=== PATIENT | male | born 1935 | race Caucasian/White ===

== ENCOUNTER 2018-05-26 15:26 | Inpatient (IN) | payer OTHER ==
[~2018-05-26] VITALS: Ht 162.6 cm; Wt 68.9 kg
[2018-05-26 15:37] VITALS: Ht 162.6 cm; Wt 68.9 kg
[2018-05-26 16:54] LABS: PLATELET COUNT 182 x10^3mcL (130-400); RED CELL DISTRIBUTION WIDTH 14.4 % (11.5-14.5)
[2018-05-26 17:05] LABS: BASOPHIL % 0 % (0-2)
[2018-05-26 17:10] LABS: ALKALINE PHOSPHATASE 194 U/L (46-116); ALT/SGPT 39 U/L (16-63); AST/SGOT 94 U/L (15-37); BILIRUBIN TOTAL 2.81 mg/dL (0.20-1.00); CARBON DIOXIDE 34.3 mmol/L (21-32); CHLORIDE SERUM 100 mmol/L (98-107); GLUCOSE SERUM 92 mg/dL (74-106); POTASSIUM SERUM 3.2 mmol/L (3.5-5.1); SODIUM SERUM 143 mmol/L (136-145); TOTAL PROTEIN, SERUM 7.6 g/dL (6.4-8.2)
[2018-05-26 17:13] LABS: ALBUMIN 2.6 g/dL (3.4-5.0); CREATININE SERUM 6.4 mg/dL (0.7-1.3)
[2018-05-26] MEDS ORDERED: FUROSEMIDE40 MG PO (19:33)
[2018-05-26] MEDS ORDERED: GOOD SENSE ASPI81 M3 PO (19:35)
[2018-05-26] MEDS ORDERED: CALCITRIOL0.5 MCG PO (19:35)
[2018-05-26 21:37] VITALS: BP 122/74
[2018-05-27 02:55] LABS: microscopic required? YES; urine erythrocyte TRACE (NEGATIVE)
[2018-05-27 06:25] VITALS: BP 121/74
[2018-05-27 07:45] LABS: PLATELET COUNT 143 x10^3mcL (130-400)
[2018-05-27 07:55] LABS: CALCIUM 8.2 mg/dL (8.5-10.1); CARBON DIOXIDE 29.2 mmol/L (21-32); CHLORIDE SERUM 105 mmol/L (98-107); GLUCOSE SERUM 71 mg/dL (74-106); POTASSIUM SERUM 3.7 mmol/L (3.5-5.1); SODIUM SERUM 143 mmol/L (136-145)
[2018-05-27 07:56] LABS: CREATININE SERUM 6.4 mg/dL (0.7-1.3)
[2018-05-27 08:19] LABS: BASOPHIL % 0 % (0-2); RED CELL DISTRIBUTION WIDTH 14.6 % (11.5-14.5)
[2018-05-27 09:02] VITALS: BP 120/72
[2018-05-27 13:10] VITALS: BP 132/77
[2018-05-27 16:45] VITALS: BP 104/70
[2018-05-27 20:28] VITALS: BP 116/67
[2018-05-28 05:29] VITALS: BP 141/88
[2018-05-28 06:06] LABS: PLATELET COUNT 144 x10^3mcL (130-400); RED CELL DISTRIBUTION WIDTH 14.5 % (11.5-14.5)
[2018-05-28 06:24] LABS: BASOPHIL % 0 % (0-2)
[2018-05-28 06:39] LABS: CALCIUM 8.4 mg/dL (8.5-10.1); CHLORIDE SERUM 103 mmol/L (98-107); GLUCOSE SERUM 105 mg/dL (74-106); SODIUM SERUM 138 mmol/L (136-145)
[2018-05-28 06:53] LABS: CREATININE SERUM 5.3 mg/dL (0.7-1.3); POTASSIUM SERUM 2.9 mmol/L (3.5-5.1)
[2018-05-28 07:49] VITALS: BP 125/82
[2018-05-28 09:44] LABS: ALBUMIN 1.9 g/dL (3.4-5.0); ALKALINE PHOSPHATASE 127 U/L (46-116); ALT/SGPT 19 U/L (16-63); AST/SGOT 27 U/L (15-37); CALCIUM 8.4 mg/dL (8.5-10.1); CARBON DIOXIDE 27.5 mmol/L (21-32); CHLORIDE SERUM 103 mmol/L (98-107); CREATININE SERUM 5.2 mg/dL (0.7-1.3); GLUCOSE SERUM 90 mg/dL (74-106); SODIUM SERUM 138 mmol/L (136-145); TOTAL PROTEIN, SERUM 6.2 g/dL (6.4-8.2)
[2018-05-28 12:02] VITALS: BP 102/74
[2018-05-28 17:35] VITALS: BP 122/80
[2018-05-28 21:11] VITALS: BP 146/88
[2018-05-29 04:54] VITALS: BP 149/86
[2018-05-29 09:15] VITALS: BP 138/87
[2018-05-29 13:57] VITALS: BP 134/86
[2018-05-29 17:30] VITALS: BP 146/89
[2018-05-29 21:09] VITALS: BP 141/84
[2018-05-30 05:20] VITALS: BP 143/87
[2018-05-30 07:02] LABS: CARBON DIOXIDE 28.9 mmol/L (21-32); CHLORIDE SERUM 104 mmol/L (98-107); CREATININE SERUM 3.8 mg/dL (0.7-1.3); GLUCOSE SERUM 168 mg/dL (74-106); SODIUM SERUM 139 mmol/L (136-145)
[2018-05-30 07:05] LABS: POTASSIUM SERUM 2.9 mmol/L (3.5-5.1)
[2018-05-30 09:31] VITALS: BP 127/83
[2018-05-30 13:39] VITALS: BP 114/79
[2018-05-30 15:31] VITALS: BP 114/79
[2018-05-30 17:04] VITALS: BP 127/78
== END 2018-05-30 20:54 | disposition home or self-care (01) | DRG 438 ==
LOC: ED 15:26 → DU 19:26
PROVIDERS: Emergency Medicine; Internal Medicine; ADMIT Internal Medicine
DX: K85.90 Acute pancreatitis without necrosis or infection, unspecified (principal); N18.6 End stage renal disease; K65.9 Peritonitis, unspecified; I12.0 Hypertensive chronic kidney disease with stage 5 chronic kidney disease or end stage renal disease; M80.88XA Other osteoporosis with current pathological fracture, vertebra(e), initial encounter for fracture; E83.51 Hypocalcemia; E87.6 Hypokalemia; M60.9 Myositis, unspecified; K83.8 Other specified diseases of biliary tract; Z99.2 Dependence on renal dialysis; Z68.23 Body mass index [BMI] 23.0-23.9, adult; Z86.73 Personal history of transient ischemic attack (TIA), and cerebral infarction without residual deficits
CPT/HCPCS: 74181; 83880; 97112-GP; 97116-GP; 97530-GP; C9113; J1956; J2405; J2765; J3010; J3480; J3490; J7030; J7040; Q0092